=== PATIENT | female | born 1980 | race Caucasian/White ===

== ENCOUNTER 2020-03-07 21:53 | Emergency (ER) | payer MEDICARE ==
[~2020-03-07] VITALS: Ht 162.6 cm; Wt 79.4 kg
[~2020-03-07 21:53] MED LIST: AMBIEN 5 MG TABL5 M1 PO; LAMICTAL100 MG PO; OXYCODON-ACETA1 EAC1 PO; RAPAFLO4 MG PO; SAVELLA100 MG PO; TOPAMAX 100 MG100 MG PO; XANAX 0.5 MG0.5 MG PO
[2020-03-07] MEDS ORDERED: CYTOMEL50 MCG PO (22:04)
[2020-03-07] MEDS ORDERED: SYNTHROID125 MC1 PO (22:04)
[2020-03-07] MEDS ORDERED: VIIBRYD20 MG PO (22:05)
[2020-03-07] MEDS ORDERED: MEDROLDOSEPACK PO (22:25)
[2020-03-07] MEDS ORDERED: PEPCID40 MG PO (22:25)
[2020-03-07 22:44] VITALS: BP 93/54
== END 2020-03-07 22:44 | disposition home or self-care (01) ==
LOC: M.ERS 21:53
DX: L30.9 Dermatitis, unspecified (principal); T78.40XA Allergy, unspecified, initial encounter; F17.210 Nicotine dependence, cigarettes, uncomplicated; Z90.49 Acquired absence of other specified parts of digestive tract; Z87.442 Personal history of urinary calculi; Z88.5 Allergy status to narcotic agent; Z88.8 Allergy status to other drugs, medicaments and biological substances; Y92.89 Other specified places as the place of occurrence of the external cause

== ENCOUNTER 2020-06-17 20:09 | Emergency (ER) | payer OTHER ==
[~2020-06-17] VITALS: Ht 162.6 cm; Wt 83.9 kg
[~2020-06-17 20:09] MED LIST changes: +CYTOMEL50 MCG PO; +MEDROLDOSEPACK PO; +PEPCID40 MG PO; +SYNTHROID125 MC1 PO; +VIIBRYD20 MG PO
[2020-06-17 20:25] LABS: URINE BILIRUBIN NEGATIVE (Negative); URINE BLOOD NEGATIVE (Negative); URINE CLARITY CLEAR; URINE COLOR YELLOW; URINE GLUCOSE-RANDOM NEGATIVE (Negative); URINE KETONES NEGATIVE (Negative); URINE LEUKOCYTES-REFLEX NEGATIVE (Negative); URINE NITRITE-REFLEX NEGATIVE (Negative); URINE PROTEIN NEGATIVE (Negative); URINE SPECIFIC GRAVITY 1.025 (1.005-1.030); URINE UROBILINOGEN 0.2 E.U./dl (0.2-1.0)
[2020-06-17] MEDS ORDERED: APAP W/CODEINE1 TA2 PO (20:49)
[2020-06-17] MEDS ORDERED: TORADOL 10 MG T10 MG PO (20:49)
[2020-06-17 21:14] VITALS: BP 172/108
== END 2020-06-17 21:14 | disposition home or self-care (01) ==
LOC: M.ERS 20:09
PROVIDERS: Physician Assistant
DX: M54.5 Low back pain (principal); Z88.5 Allergy status to narcotic agent; Z88.8 Allergy status to other drugs, medicaments and biological substances; Z90.49 Acquired absence of other specified parts of digestive tract; Z87.442 Personal history of urinary calculi